=== PATIENT | female | born 1990 | race Caucasian/White ===

== ENCOUNTER 2021-03-18 06:15 | Emergency (ER) | payer OTHER ==
[~2021-03-18] VITALS: Ht 172.7 cm; Wt 59.0 kg
[2021-03-18] MEDS ORDERED: TYLENOL325 M1 PO (08:33)
[2021-03-18] MEDS ORDERED: NAPROXEN250 MG PO (08:33)
== END 2021-03-18 09:29 | disposition home or self-care (01) ==
LOC: ED 06:15
DX: S91.311A Laceration without foreign body, right foot, initial encounter (principal); F17.200 Nicotine dependence, unspecified, uncomplicated; W25.XXXA Contact with sharp glass, initial encounter; Y93.89 Activity, other specified; Y92.89 Other specified places as the place of occurrence of the external cause; Y99.8 Other external cause status